=== PATIENT | male | born 1980 | race Two or more races ===

== ENCOUNTER 2017-10-20 18:49 | Emergency (ER) | payer MEDICAID, OTHER ==
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
== END 2017-10-20 20:45 | disposition home or self-care (01) ==
LOC: DL.ED 18:49
DX: J06.9 Acute upper respiratory infection, unspecified (principal)
CPT/HCPCS: 87804; 99283

== ENCOUNTER 2018-04-19 09:30 | Emergency (ER) | payer MEDICAID, OTHER ==
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
--- NOTE | 2018-04-19 10:29 | CR ---
Clinical history: 38-year-old male left foot pain (basketball injury last night). Interpretation: Mild pes cavus and atavistic first cuneiform with early arthritic change first metata rsophalangeal joint. Note: Horizontal lucent line across the body of the calcaneus (1 view only) and point tenderness "arc h of foot" i.e. doubt fracture. No sign of other left foot fracture or dislocation. No foreign bodies.
== END 2018-04-19 11:00 | disposition home or self-care (01) ==
LOC: DL.ED 09:30
DX: S93.602A Unspecified sprain of left foot, initial encounter (principal); Y93.67 Activity, basketball; X58.XXXA Exposure to other specified factors, initial encounter
CPT/HCPCS: 73630-LT; 99283

== ENCOUNTER 2020-02-22 06:34 | Day surgery (SDC) | payer MEDICAID ==
[~2020-02-22 06:34] MED LIST: Midazolam 1 MG/ML 2 ML SDV ONE; fentaNYL 100 MCG/2 ML SDV ONE
[2020-02-22] MEDS ORDERED: Midazolam 1 MG/ML 2 ML SDV IV ONE ×7 (06:35→07:56)
[2020-02-22] MEDS ORDERED: fentaNYL 100 MCG/2 ML SDV IV ONE ×4 (06:35→08:00)
[2020-02-22] MEDS ORDERED: Sodium Chloride 0.9% 10 ML Syringe FLUSH PRN (07:27)
[2020-02-22] MEDS ORDERED: Dextrose 5%-0.45% NaCl 1,000 ML IV SCH (07:30)
--- NOTE | 2020-02-22 12:23 | OR ---
DATE: 02/22/2020 PROCEDURE: Total colonoscopy. INSTRUMENT USED: PCF-H190DL Olympus video colonoscope. PREMEDICATIONS: Fentanyl 125 mcg intravenous, Versed 4 mg intravenous. The procedure was done under pulse oximetry, BP recording, and cardiac rehabilitation program director. INDICATION: The patient with rectal bleeding. Colonoscopic examination is done for detection of any polypoid lesions and removal, endoscopic hemostasis therapy if needed. DESCRIPTION OF PROCEDURE: Initial rectal exam showed some perianal deformity. Rigid anoscopy showed small internal hemorrhoids without bleeding from them. The colonoscope was passed with ease up to the ileocecal area. Photographs were taken of the normal-appearing cecum, identified by landmarks of appendiceal orifice and double-bulged ileocecal folds. No bleeding was noted from any of the visualized areas at the commencement of the examination. The bowel preparation was found to be adequate. [place] scale 2 in all the regions, total score 6. No stricture. No vascular ectasia. No large isolated ulcerations seen. No evidence of diffuse inflammatory bowel disease in the form of friability, contact bleeding, or ulcerations. No polyp or tumor mass identified. Probing the proximal sides of folds and flexures using adequate distention and clearing up the stool material, withdrawal of the scope was made, cecum to rectum time over 6 minutes. No bleeding was noted from any of the visualized areas at the completion of examination. IMPRESSION: Internal hemorrhoids. The patient tolerated the procedure well. [facility] /[id number]
== END 2020-02-22 10:00 | disposition home or self-care (01) ==
LOC: DL.ENDO 06:34
PROVIDERS: ATTEND Internal Medicine Gastroenterology
DX: K64.8 Other hemorrhoids (principal); F41.1 Generalized anxiety disorder; G31.84 Mild cognitive impairment of uncertain or unknown etiology; G89.4 Chronic pain syndrome; F12.90 Cannabis use, unspecified, uncomplicated; B18.2 Chronic viral hepatitis C; Z87.891 Personal history of nicotine dependence; Z87.898 Personal history of other specified conditions; Z98.890 Other specified postprocedural states; Z87.828 Personal history of other (healed) physical injury and trauma
CPT/HCPCS: 45378; J2250; J3010; J7042; G0121

== ENCOUNTER 2020-04-04 22:34 | Emergency (ER) | payer MEDICAID ==
[2020-04-04] MEDS ORDERED: Ciprofloxacin 0.3% Ophth Soln 5 ML Bottle ONE (23:46)
[2020-04-04] MEDS ORDERED: Diphtheria,Pertussis(Acell),Tetanus Vaccine 0.5 ML SDV IM ONE (23:49)
[2020-04-04] MEDS ORDERED: Lidocaine 1% with EPINEPHrine 1:100,000 20 ML MDV INJECT ONE (23:49)
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
== END 2020-04-05 00:16 | disposition home or self-care (01) ==
LOC: DL.ED 22:34
DX: S81.811A Laceration without foreign body, right lower leg, initial encounter (principal); Z23 Encounter for immunization; W23.0XXA Caught, crushed, jammed, or pinched between moving objects, initial encounter
CPT/HCPCS: 12002; 90471; 90715; 99282; 99283; A9270-GY

== ENCOUNTER 2021-02-07 13:48 | Emergency (ER) | payer MEDICAID ==
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
== END 2021-02-07 14:22 | disposition home or self-care (01) ==
LOC: DL.ED 13:48
DX: H65.01 Acute serous otitis media, right ear (principal)
CPT/HCPCS: 99282; 99283